=== PATIENT | male | born 1940 ===

== ENCOUNTER 2023-10-14 20:18 | Emergency (ER) | payer BC, MEDICAID ==
[~2023-10-14] VITALS: Ht 165.1 cm; Wt 81.6 kg
[2023-10-14] MEDS ORDERED: LOSA25TA27 PO (20:43)
[2023-10-14] MEDS ORDERED: ATOR10TA PO (20:43)
[2023-10-14] MEDS ORDERED: ASPI81TA31 PO (20:43)
[2023-10-15] MEDS ORDERED: CLONIDINE HCL 0.1 MG TABLET ONE (00:28)
[2023-10-15] MEDS: CLONIDINE HCL 0.1 MG TABLET PO ONE (00:30)
[2023-10-15 00:38] LABS: BASOPHILS % (AUTO) 0.4 % (0.0-2.0); EOSINOPHILS # (AUTO) 0.2 K/uL (0.0-0.7); EOSINOPHILS % (AUTO) 3.7 % (0.0-7.0); HEMOGLOBIN 14.7 g/dL (12.5-16.3); LYMPHOCYTES # (AUTO) 2.1 K/uL (0.8-4.8); LYMPHOCYTES % (AUTO) 31.5 % (20.5-51.5); MEAN CORPUSCULAR HEMOGLOBIN 30.7 uug (23.8-33.4); MEAN CORPUSCULAR HGB CONC 35 g/dL (32.5-36.3); MEAN CORPUSCULAR VOLUME 87.9 fL (73.0-96.2); MONOCYTES # (AUTO) 0.7 K/uL (0.1-1.30); NEUTROPHILS # (AUTO) 3.6 K/uL (1.8-8.9); NEUTROPHILS % (AUTO) 54.4 % (38.5-71.5); PLATELET COUNT (AUTO) 240 K/uL (152-348); RED BLOOD CELL COUNT(AUTO) 4.78 MIL/uL (4.06-5.63); RED CELL DISTRIBUTION WIDTH 12.5 % (12.1-16.2); WHITE BLOOD COUNT (AUTO) 6.6 K/uL (3.6-10.2)
[2023-10-15 00:50] LABS: CARBON DIOXIDE 30 mmol/L (21-32); CHLORIDE 100 mmol/L (98-107); CREATININE 0.9 mg/dL (0.6-1.3); GLUCOSE 139 mg/dL (74-106); MAGNESIUM 2.1 mg/dL (1.8-2.4); POTASSIUM 4.2 mmol/L (3.5-5.1); SODIUM SERUM 137 mmol/L (136-145); UREA NITROGEN, BLOOD 13 mg/dL (7-18)
[2023-10-15] MEDS ORDERED: CLON0.1T PO (01:22)
[2023-10-15 05:50] VITALS: BP 145/88; TEMP 97.8; O2SAT 99
== END 2023-10-15 01:20 | disposition home or self-care (01) ==
LOC: ER 20:22
DX: I10 Essential (primary) hypertension (principal); E78.5 Hyperlipidemia, unspecified; Z79.899 Other long term (current) drug therapy
CPT/HCPCS: 36415; 83735; 85025; A4606; A4663